=== PATIENT | male | born 1965 | race Caucasian/White ===

== ENCOUNTER 2024-02-08 06:23 | Day surgery (SDC) | payer OTHER ==
[2024-02-08] MEDS ORDERED: fentaNYL 50 MCG/ML SDV ONE (06:41)
[2024-02-08] MEDS ORDERED: Midazolam 1 MG/ML 2 ML SDV ONE (06:41)
[2024-02-08] MEDS ORDERED: Propofol 200 MG/20 ML SDV ONE ×2 (06:41→09:49)
[2024-02-08] MEDS: Lactated Ringers 1,000 ML IV SCH (07:22)
== END 2024-02-08 11:08 | disposition home or self-care (01) ==
LOC: JP.SDS 06:23
PROVIDERS: ATTEND Family Medicine
DX: Z12.11 Encounter for screening for malignant neoplasm of colon (principal); R19.5 Other fecal abnormalities; D12.3 Benign neoplasm of transverse colon; D12.4 Benign neoplasm of descending colon; D12.8 Benign neoplasm of rectum; I10 Essential (primary) hypertension
CPT/HCPCS: 00811; 45385; 88305; J2250; J2704; J3010; J7120

== ENCOUNTER 2024-11-21 18:32 | Emergency (ER) | payer MEDICAID ==
[2024-11-21 19:09] LABS: BASOPHILS ABSOLUTE AUTO 0.03 K/uL (0.00-0.10); BASOPHILS PERCENT AUTO 0.6 % (0.1-1.3); EOSINOPHILS ABSOLUTE AUTO 0.10 K/uL (0.00-0.40); EOSINOPHILS PERCENT AUTO 2.0 % (0.0-5.4); IMMATURE GRAN ABSOLUTE AUTO 0.03 K/uL (0.00-0.23); IMMATURE GRAN PERCENT AUTO 0.6 % (0.0-0.7); LYMPHOCYTES ABSOLUTE AUTO 1.00 K/uL (0.8-3.3); LYMPHOCYTES PERCENT AUTO 20.3 % (11.4-47.7); MONOCYTES ABSOLUTE AUTO 0.37 K/uL (0.20-0.90); MONOCYTES PERCENT AUTO 7.5 % (3.3-12.6); NEUTROPHILS ABSOLUTE AUTO 3.40 K/uL (1.0-7.6); NEUTROPHILS PERCENT AUTO 69.0 % (40.0-78.1); PLATELET COUNT,PLT 147 K/uL (130-375); RED BLOOD CELL COUNT 4.08 M/uL (4.14-5.76); WHITE BLOOD CELL COUNT,WBC 4.9 K/uL (3.2-11.0)
[2024-11-21] MEDS: Sodium Chloride 0.9% 10 ML Syringe FLUSH PRN (19:10)
[2024-11-21 19:32] LABS: A/G RATIO 1.2 (1.2-2.2); ALANINE AMINOTRANSFERASE,ALT 35 U/L (12-78); ASPARTATE AMNIOTRANSFERASE,AST 21 U/L (15-37); BILIRUBIN TOTAL 0.9 mg/dL (0.2-1.0); BLOOD UREA NITROGEN,BUN 13 mg/dL (7-18); CARBON DIOXIDE,CO2 32 mmol/L (21-32); CHLORIDE,CL 103 mmol/L (100-108); CREATININE 1.5 mg/dL (0.8-1.3); ESTIMATED GFR 53 mL/min (>60); GLUCOSE RANDOM 143 mg/dL (74-106); POTASSIUM,K 3.7 mmol/L (3.6-5.2); PROTEIN TOTAL,TP 7.3 g/dL (6.4-8.2); SODIUM,NA 141 mmol/L (140-148); TROPONIN I HIGH SENSITIVITY 4.8 pg/mL (<=60.3)
[2024-11-21] MEDS: Ketorolac 30 MG/ML SDV IVPUSH ONE (20:08)
[2024-11-21] MEDS: Ketorolac 30 MG/ML SDV IM ONE (20:49)
== END 2024-11-21 21:35 | disposition home or self-care (01) ==
LOC: JP.ED 18:32
DX: R07.89 Other chest pain (principal); I10 Essential (primary) hypertension; Z86.16 Personal history of COVID-19; Z79.899 Other long term (current) drug therapy
CPT/HCPCS: 36415; 71045; 80053; 83605; 84484; 85025; 85379; 93005; 96374; 99285; A9270; J1885